=== PATIENT | female | born 1955 | race Caucasian/White ===

== ENCOUNTER 2018-09-06 09:15 | Day surgery (SDC) | payer MEDICAID ==
[~2018-09-06] VITALS: Ht 157.5 cm; Wt 53.3 kg
[2018-09-06] MEDS ORDERED: SODIUM CHLORIDE 0.9% 1,000 ML IV SCH (09:55)
[2018-09-06 10:12] VITALS: BP 193/94
[2018-09-06] MEDS ORDERED: PLEASE ENTER HEIGHT AND WEIGHT MC SCH (10:30)
[2018-09-06 11:29] LABS: INTERNATIONAL NORMALIZED RATIO 0.86 (0.93-1.1); PROTHROMBIN TIME 9.1 Seconds (9.6-11.5)
[2018-09-06] MEDS ORDERED: MIDAZOLAM 1 MG/ML, 5ML ONE (12:18)
[2018-09-06] MEDS ORDERED: FENTANYL PF 100 MCG/2ML ONE (12:18)
[2018-09-06] MEDS ORDERED: FLUMAZENIL 0.1 MG/1 ML, 5ML ONE (12:18)
[2018-09-06] MEDS ORDERED: NALOXONE 1 MG/ML, 2ML ONE (12:19)
== END 2018-09-06 12:50 | disposition home or self-care (01) ==
LOC: OUT 09:15 → EDSTATUS 11:00 → OUT 12:50
PROVIDERS: ATTEND Nurse Practitioner
DX: E11.22 Type 2 diabetes mellitus with diabetic chronic kidney disease (principal); Z53.8 Procedure and treatment not carried out for other reasons; I12.9 Hypertensive chronic kidney disease with stage 1 through stage 4 chronic kidney disease, or unspecified chronic kidney disease; N18.3 Chronic kidney disease, stage 3 (moderate); I69.354 Hemiplegia and hemiparesis following cerebral infarction affecting left non-dominant side; J45.909 Unspecified asthma, uncomplicated
CPT/HCPCS: 82962; 85610; J2250; J3010; J2310